=== PATIENT | female | born 1950 | race Two or more races ===

== ENCOUNTER 2022-08-28 10:50 | Inpatient (IN) | payer OTHER ==
[~2022-08-28] VITALS: Ht 165.1 cm; Wt 77.6 kg
[2022-08-29] MEDS ORDERED: NORVASC10 MG PO (08:12)
[2022-09-05] MEDS ORDERED: TRAM1TAB98 PO (13:08)
[2022-09-05] MEDS ORDERED: HYOSCYAMINE0.125 M1 SL (13:08)
[2022-09-05] MEDS ORDERED: PEPCID AC20 MG PO (13:09)
== END 2022-09-05 17:11 | disposition home or self-care (01) | DRG 331 ==
LOC: O/R 09-02 06:08 → SURH 09-02 06:08 → SURG 09-02 09:00 → SURH 09-02 12:07 → SURG 09-02 12:45 → SURH 09-05 17:11
PROVIDERS: ADMIT Surgery; ATTEND Surgery
PROC: 07BB4ZZ Excision of Mesenteric Lymphatic, Percutaneous Endoscopic Approach (ICD-10-PCS; 2022-09-02)
PROC: 0DTF4ZZ Resection of Right Large Intestine, Percutaneous Endoscopic Approach (ICD-10-PCS; principal; 2022-09-02 09:00)
DX: D12.2 Benign neoplasm of ascending colon (principal); Z20.822 Contact with and (suspected) exposure to COVID-19